=== PATIENT | female | born 1975 | race Caucasian/White ===

== ENCOUNTER 2017-11-02 17:13 | Emergency (ER) | payer OTHER ==
[~2017-11-02] VITALS: Ht 165.1 cm; Wt 64.4 kg
[2017-11-02 17:16] VITALS: Ht 165.1 cm; Wt 64.4 kg
[2017-11-02 19:42] VITALS: BP 122/84
== END 2017-11-02 19:42 | disposition home or self-care (01) ==
LOC: ED 17:13
DX: T67.8XXA Other effects of heat and light, initial encounter (principal); R06.4 Hyperventilation; X58.XXXA Exposure to other specified factors, initial encounter; Y93.89 Activity, other specified; Y92.89 Other specified places as the place of occurrence of the external cause; Y99.8 Other external cause status
CPT/HCPCS: Q0162